=== PATIENT | male | born 1945 | race Caucasian/White ===

== ENCOUNTER 2022-03-14 19:46 | Emergency (ER) | payer MEDICARE ==
[~2022-03-14] VITALS: Ht 177.8 cm; Wt 81.6 kg
[2022-03-14 21:16] LABS: BASOPHILS # (AUTO) 0.1 (0.0-0.1); BASOPHILS % 0.7 % (0.0-1.0); EOSINOPHILS # (AUTO) 0.2 (0.0-0.4); EOSINOPHILS % 1.3 % (0.0-6.0); HEMATOCRIT 43.9 % (38.2-49.6); HEMOGLOBIN 14.3 g/dL (14.0-18.0); LYMPHOCYTES % 16.4 % (18.0-39.1); MEAN CORPUSCULAR HEMOGLOBIN 30.6 pg (28-32); MEAN CORPUSCULAR HGB CONC 32.6 g/dL (31-35); MONOCYTES # (AUTO) 1.1 (0.2-0.8); MONOCYTES % 9.3 % (4.4-11.3); NEUTROPHILS # (AUTO) 8.5 (2.1-6.9); NEUTROPHILS % 71.6 % (38.7-80.0); PLATELET COUNT 177 x10e3/uL (140-360); RED BLOOD COUNT 4.67 x10e6/uL (4.3-5.7); RED CELL DISTRIBUTION WIDTH 12.7 % (11.7-14.4)
[2022-03-14 21:21] LABS: CLARITY,URINE SL CLOUDY (CLEAR); COLOR,URINE YELLOW (YELLOW); KETONES,URINE NEGATIVE (NEGATIVE); LEUKOCYTE ESTERASE ,URINE TRACE (NEGATIVE); NITRITE,URINE NEGATIVE (NEGATIVE); PROTEIN,URINE DIPSTICK NEGATIVE (NEGATIVE); URINE UROBILINOGEN 0.2 mg/dL (0.2 - 1)
[2022-03-14 21:35] LABS: ALBUMIN 3.9 g/dL (3.5-5.0); ALBUMIN/GLOBULIN RATIO 1.6 (0.8-2.0); ANION GAP 16.3 mmol/L (8-16); BACTERIA,URINE MODERATE /HPF; CALCIUM 9.4 mg/dL (8.4-10.2); CREATININE, SERUM 1.61 mg/dL (0.72-1.25); POTASSIUM 4.3 mmol/L (3.5-5.1); WBC,URINE (MAN) 0-5 /HPF (0-5)
[2022-03-14 22:02] VITALS: BP 132/68
== END 2022-03-14 21:57 | disposition home or self-care (01) ==
LOC: ER 19:50
DX: R33.9 Retention of urine, unspecified (principal); I10 Essential (primary) hypertension; E78.5 Hyperlipidemia, unspecified; F32.A Depression, unspecified; I25.2 Old myocardial infarction; Z86.73 Personal history of transient ischemic attack (TIA), and cerebral infarction without residual deficits
CPT/HCPCS: 36415; 51700; 80053; 81001; 85025; 99284

== ENCOUNTER 2022-03-16 11:24 | Emergency (ER) | payer MEDICARE ==
[~2022-03-16] VITALS: Ht 177.8 cm; Wt 81.6 kg
[2022-03-16] MEDS ORDERED: FLOMAX0.4 MG PO (12:06)
== END 2022-03-16 12:12 | disposition home or self-care (01) ==
LOC: ER 11:37
DX: R33.9 Retention of urine, unspecified (principal); I10 Essential (primary) hypertension; E78.5 Hyperlipidemia, unspecified; F32.A Depression, unspecified; I25.2 Old myocardial infarction; Z95.5 Presence of coronary angioplasty implant and graft; Z86.73 Personal history of transient ischemic attack (TIA), and cerebral infarction without residual deficits
CPT/HCPCS: 99282

== ENCOUNTER 2022-03-16 15:30 | Emergency (ER) | payer MEDICARE ==
[~2022-03-16] VITALS: Ht 177.8 cm; Wt 81.6 kg
[~2022-03-16 15:30] MED LIST: FLOMAX0.4 MG PO
== END 2022-03-16 15:56 | disposition home or self-care (01) ==
LOC: ER 15:35
DX: Z46.6 Encounter for fitting and adjustment of urinary device (principal); R33.9 Retention of urine, unspecified; I10 Essential (primary) hypertension; E78.5 Hyperlipidemia, unspecified; F32.A Depression, unspecified; I25.2 Old myocardial infarction; Z95.5 Presence of coronary angioplasty implant and graft; Z86.73 Personal history of transient ischemic attack (TIA), and cerebral infarction without residual deficits
CPT/HCPCS: 99282